=== PATIENT | female | born 1955 | race Native Hawaiian/Other Pacific Islander ===

== ENCOUNTER 2020-11-28 10:39 | Outpatient (CLI) | payer OTHER | END 2020-11-28 21:38 | disposition home or self-care (01) | LOC: RAD 10:39 | PROVIDERS: ATTEND Nurse Practitioner | DX: J43.8 Other emphysema (principal) ==

== ENCOUNTER 2020-12-15 12:55 | Outpatient (CLI) | payer OTHER | END 2020-12-15 21:39 | disposition home or self-care (01) | LOC: MAMMO 12:55 → US 14:00 → MAMMO 21:39 | PROVIDERS: ATTEND Nurse Practitioner | DX: N64.4 Mastodynia (principal) | CPT/HCPCS: G0279 ==

== ENCOUNTER 2022-06-24 15:34 | Outpatient (CLI) | payer OTHER | END 2022-06-24 19:17 | disposition home or self-care (01) | LOC: US 15:34 | PROVIDERS: ATTEND Physician Assistant | DX: R09.89 Other specified symptoms and signs involving the circulatory and respiratory systems (principal) ==